=== PATIENT | male | born 1985 | race Caucasian/White ===

== ENCOUNTER 2021-01-27 04:41 | Emergency (ER) | payer OTHER, SELFPAY ==
[2021-01-27 04:47] VITALS: BP 142/93; PULSE 80; RESP 16; TEMP 36.2; O2SAT 99
--- NOTE | 2021-01-27 05:00 | ED.EXTPRO ---
HPI - Extremity Problem General Chief complaint: Extremity Problem,Nontraumatic Stated complaint: Poss blood clot pain left leg Time Seen by Provider: 01/27/21 04:43 Source: patient Mode of arrival: ambulatory Limitations: no limitations History of Present Illness HPI Narrative: This is a 35 year old male who presents for an evaluation of left calf pain. He is concerned he may have a blood clot. He states he was hit with a soft ball to his left lower leg on Monday. He has been having minimal pain since his injury. Starting yesterday he noticed pain to his left calf. This pain seemed to move to his thigh. He has only mild pain now. His pain is worse with palpation. He denies chest pain,sob, dizziness. Denies history of PE or DVT. Related Data Home Medications Medication Instructions Recorded Confirmed lisinopril 01/27/21 Allergies Allergy/AdvReac Type Severity Reaction Status Date / Time amoxicillin Allergy Unknown Unknown Verified 01/27/21 04:42 Penicillins Allergy Unknown Unknown Verified 01/27/21 04:42 Review of Systems Review of Systems: All systems reviewed & are unremarkable except as noted in HPI and below PMFSH Past Medical History Medical History (Updated 01/28/21 @ 00:00 by Vidhi Mello) Hypertension Surgical History Surgical History (Updated 01/27/21 @ 06:09 by Catie Hackett MD) No pertinent past surgical history Social History Social History Smoking status: Never smoker Alcohol intake: current Gender identity (if verbalized by the patient): Male Exam Const: General: no acute distress and alert Orientation/consciousness: patient oriented x3 Eyes: EOM: EOMs intact bilaterally Resp: Effort & Inspection: normal respiratory effort and no retractions Auscultation: clear to auscultation bilaterally Cardio: Rate: regular rate Rhythm: regular rhythm Heart sounds: no murmurs Skin: Other: bruising to left medial ankle, no swelling, no tenderness Neuro: General: patient oriented x3 and moves all extremities Extrem: General: no pedal edema Other: no swelling, TTP left calf, Psych: Mental Status: mental status grossly normal Course Reevaluation(s) Reevaluation #1: Patient is low risk for DVT and he has negative d dimer. DVT unlikely. I have discussed with patient. He states he understands and will be discharged. Date: 01/27/21 Time: 06:11 Vital Signs Vital signs: Vital Signs Temperature 97.2 F L 01/27/21 04:47 Pulse Rate 80 01/27/21 04:47 Respiratory Rate 16 01/27/21 04:47 Blood Pressure 142/93 H 01/27/21 04:47 Pulse Oximetry 99 01/27/21 04:47 Temperature 98.1 F 01/27/21 06:18 Pulse Rate 76 01/27/21 06:18 Respiratory Rate 18 01/27/21 06:18 Blood Pressure 137/82 01/27/21 06:18 Pulse Oximetry 99 01/27/21 06:18 MDM - Extremity (Nontraumatic) Lab Data Attestation: I reviewed the patient's lab results. Result diagrams: 01/27/21 05:13 01/27/21 05:13 Labs: Lab Results 01/27/21 01/27/21 01/27/21 Range/Units 05:13 05:13 05:13 WBC 8.5 (4.5-10.0) K/mm3 RBC 5.63 (4.6-6.20) M/mm3 Hgb 17.4 (14.0-18.0) g/dL Hct 48.4 (42.0-52.0) % MCV 86.0 (80-100) fl MCH 30.9 (26-34) pg MCHC 36.0 (32-36) g/dl RDW 12.0 (11.5-14.5) % Plt Count 239 (150-375) k/mm3 MPV 9.5 (7.4-10.4) fl Immature Gran % (Auto) 0.8 H (0-0.5) % Neut % (Auto) 50.1 (45.5-73.1) % Lymph % (Auto) 38.3 (18.3-44.2) % [place] % (Auto) 6.6 (2.6-8.5) % Eos % (Auto) 3.5 (0-4.4) % Baso % (Auto) 0.7 (0.2-1.2) % Lymph # (Auto) 3.24 H (0.9-3.2) K/mm3 [place] # (Auto) 0.6 (0.1-0.6) K/mm3 Eos # (Auto) 0.3 (0-0.3) K/mm3 Baso # (Auto) 0.1 (0.0-0.1) K/mm3 Abs Immat Gran (auto) 0.07 H (0.00-0.031) K/mm3 Absolute Neuts (auto) 4.2 (1.3-6.7) K/mm3 Absolute Nucleated RBC 0.0 (0.0-0.012) K/mm3 Nucleated RBC % 0.0 (0.0-0.2) % D
[2021-01-27 05:20] LABS: Basophils Absolute Auto 0.1 K/mm3 (0.0-0.1); Basophils Percent Auto 0.7 % (0.2-1.2); Eosinophils Absolute Auto 0.3 K/mm3 (0-0.3); Eosinophils Percent Auto 3.5 % (0-4.4); Hematocrit 48.4 % (42.0-52.0); Hemoglobin 17.4 g/dL (14.0-18.0); Immature Granulocyte Absolute 0.07 K/mm3 (0.00-0.031); Immature Granulocyte Percent A 0.8 % (0-0.5); Lymphocytes Absolute Auto 3.24 K/mm3 (0.9-3.2); Lymphocytes Percent Auto 38.3 % (18.3-44.2); Mean Corpuscular Hemoglobin 30.9 pg (26-34); Mean Platelet Volume 9.5 fl (7.4-10.4); Monocytes Absolute Auto 0.6 K/mm3 (0.1-0.6); Monocytes Percent Auto 6.6 % (2.6-8.5); Neutrophils Absolute Auto 4.2 K/mm3 (1.3-6.7); Neutrophils Percent Auto 50.1 % (45.5-73.1); Platelet Count Result 239 k/mm3 (150-375); Red Blood Count 5.63 M/mm3 (4.6-6.20); White Blood Count 8.5 K/mm3 (4.5-10.0)
[2021-01-27 05:32] LABS: Anion Gap 6 mmol/L (8-16); Blood Urea Nitrogen 12 mg/dL (9-20); Calcium 9.4 mg/dL (8.4-10.2); Carbon Dioxide 30 mmol/L (22-30); Chloride 104 mmol/L (98-107); Estimated CRCL calculation 127 ml/min; Estimated Glomerular Filt Rate > 60; Glucose 118 mg/dL (75-110); Potassium 4.3 mmol/L (3.4-5.0); Sodium 140 mmol/L (137-145)
[2021-01-27 06:03] LABS: Creatine Kinase 89 U/L (55-170)
[2021-01-27 06:06] LABS: D Dimer < 0.22 ug/mL (<0.48)
[2021-01-27 06:18] VITALS: BP 137/82; PULSE 76; RESP 18; TEMP 36.7; O2SAT 99
== END 2021-01-27 06:19 | disposition home or self-care (01) ==
PROVIDERS: Emergency Provider General Practice; PCP Family Medicine
DX: M79.662 Pain in left lower leg (principal); I10 Essential (primary) hypertension
CPT/HCPCS: 36415; 80048; 82550; 85025; 85380; 99283